=== PATIENT | female | born 2000 | race African-American/Black ===

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

== ENCOUNTER 2018-10-07 13:50 | Emergency (ER) | payer OTHER ==
[2018-10-07] MEDS: MORPHINE 2 MG/ML 1ML SYRINGE (J2270) IV (14:40)
[2018-10-07] MEDS: NS 1,000 ML IV (14:40)
[2018-10-07 14:53] LABS: HEMATOCRIT 38.8 % (36.0-47.0); HEMOGLOBIN 12.1 g/dl (12.0-15.5); MEAN CORPUSCULAR HEMOGLOBIN 24.8 pg (27.0-33.0); MEAN CORPUSCULAR HGB CONC 31.2 g/dl (32.0-36.5); MEAN CORPUSCULAR VOLUME 79.5 fl (80.0-96.0); PLATELET COUNT, AUTOMATED 309 10^3/uL (150-450); RED BLOOD COUNT 4.88 10^6/uL (4.00-5.40); RED CELL DISTRIBUTION WIDTH 14.9 % (11.5-14.5); WHITE BLOOD COUNT 14.6 10^3/uL (4.0-10.0)
[2018-10-07] MEDS ORDERED: ACETAMINOPHEN 325 MG TAB As Ordered (15:08)
[2018-10-07 15:12] LABS: ANION GAP 6 MEQ/L (8-16); BLOOD UREA NITROGEN 10 MG/DL (7-18); CALCIUM LEVEL 9.1 MG/DL (8.5-10.1); CARBON DIOXIDE LEVEL 28 MEQ/L (21-32); CHLORIDE LEVEL 105 MEQ/L (98-107); CPK CREATINE PHOSPHOKINASE 80 U/L (26-192); CREATININE FOR GFR 0.87 MG/DL (0.55-1.30); GLUCOSE, FASTING 86 MG/DL (70-100); HCG, SERUM QUANTITATIVE < 1.0 MIU/ML; POTASSIUM SERUM 3.8 MEQ/L (3.5-5.1); SODIUM LEVEL 139 MEQ/L (136-145)
[2018-10-07] MEDS: KETOROLAC 30 MG/ML VIAL (J1885) IV (15:30)
== END 2018-10-07 16:54 | disposition home or self-care (01) ==
LOC: M ED 13:50
DX: J06.9 Acute upper respiratory infection, unspecified (principal); R51 Headache
CPT/HCPCS: J1885

== ENCOUNTER 2019-02-05 11:57 | Emergency (ER) | payer OTHER ==
[~2019-02-05] VITALS: Ht 167.6 cm; Wt 79.5 kg
[~2019-02-05 11:57] MED LIST changes: +ANUS2.5C2 TOP; +COLA100C5 PO; +DIBU1OIN TOP; +FLAG500T PO; +IBUP-1114 PO; +MAPA500T2 PO; +MOTR200T44 PO
[2019-02-05] MEDS ORDERED: IBUP-1114 PO (12:59)
[2019-02-05] MEDS ORDERED: IBUPROFEN 400 MG TAB PO ONE (13:00)
[2019-02-05 13:01] VITALS: BP 130/62
== END 2019-02-05 13:07 | disposition home or self-care (01) ==
LOC: M ED 11:57
DX: S99.822A Other specified injuries of left foot, initial encounter (principal); X58.XXXA Exposure to other specified factors, initial encounter; Y92.89 Other specified places as the place of occurrence of the external cause; Z86.14 Personal history of Methicillin resistant Staphylococcus aureus infection

== ENCOUNTER 2019-04-27 15:18 | Emergency (ER) | payer OTHER ==
[~2019-04-27] VITALS: Ht 165.1 cm; Wt 82.3 kg
[2019-04-27] MEDS ORDERED: AZITHROMYCIN 250 MG TAB PO ONE (16:30)
[2019-04-27] MEDS: cefTRIAXone SOD 250 MG VIAL (J0696) IM ONE ×2 (16:37→16:42)
[2019-04-27] MEDS: LIDOCAINE 1% SDV 5 ML VIAL DILUENT ONE ×2 (16:37→16:43)
[2019-04-27 16:46] VITALS: BP 118/64
[2019-04-27 17:50] LABS: CHLAMYDIA DNA AMPLIFICATION NEGATIVE (NEGATIVE); GC DNA AMPLIFICATION NEGATIVE (NEGATIVE)
== END 2019-04-27 16:47 | disposition home or self-care (01) ==
LOC: M ED 15:18
DX: N89.8 Other specified noninflammatory disorders of vagina (principal); Z20.2 Contact with and (suspected) exposure to infections with a predominantly sexual mode of transmission

== ENCOUNTER 2019-05-01 13:29 | Emergency (ER) | payer OTHER ==
[~2019-05-01] VITALS: Ht 165.1 cm; Wt 84.2 kg
[2019-05-01 14:09] LABS: BASO % 0.3 % (0.0-1.0); EOS # 0.1 10^3/uL (0.0-0.50); EOS % 0.7 % (0.0-3.0); HEMATOCRIT 37.2 % (36.0-47.0); HEMOGLOBIN 11.1 g/dl (12.0-15.5); LYMPH # 2.6 10^3/uL (1.5-6.5); LYMPH % 34.9 % (24.0-44.0); MEAN CORPUSCULAR HGB CONC 29.8 g/dl (32.0-36.5); MEAN CORPUSCULAR VOLUME 77.2 fl (80.0-96.0); MONO # 0.5 10^3/uL (0.0-0.8); MONO % 7.3 % (0.0-5.0); NEUTROPHILS # 4.2 10^3/uL (1.8-7.7); NEUTROPHILS % 56.5 % (36.0-66.0); PLATELET COUNT, AUTOMATED 379 10^3/uL (150-450); RED BLOOD COUNT 4.82 10^6/uL (4.00-5.40); WHITE BLOOD COUNT 7.4 10^3/uL (4.0-10.0)
[2019-05-01 14:37] LABS: ALBUMIN 3.8 GM/DL (3.2-5.2); ALT/SGPT 18 U/L (12-78); BILIRUBIN,DIRECT 0.1 MG/DL (0.0-0.2); BILIRUBIN,TOTAL 0.5 MG/DL (0.2-1.0); BLOOD UREA NITROGEN 13 MG/DL (7-18); CALCIUM LEVEL 9.1 MG/DL (8.5-10.1); CARBON DIOXIDE LEVEL 27 MEQ/L (21-32); CHLORIDE LEVEL 107 MEQ/L (98-107); CREATININE FOR GFR 0.86 MG/DL (0.55-1.30); GLOMERULAR FILTRATION RATE > 60.0 (>60); GLUCOSE, FASTING 124 MG/DL (70-100); LIPASE 207 U/L (73-393); POTASSIUM SERUM 3.8 MEQ/L (3.5-5.1); SODIUM LEVEL 140 MEQ/L (136-145); TOTAL PROTEIN 7.9 GM/DL (6.4-8.2)
--- NOTE | 2019-05-01 16:04 | REP ---
Clinical: Pelvic pain and cramping . Technique: Transabdominal pelvic ultrasound followed by transvaginal examination for better evaluation of the endometrium and adnexa with color Doppler evaluation of the ovaries. Findings: Bladder is collapsed. Normal heterogeneous anteverted uterus measures 10.3 x 4.7 x 5.9 cm . The endometrial complex measures 11.5 mm thickness. No discrete uterine or endometrial abnormalities are appreciated. Right ovary not visualized. Left ovary is normal in appearance and vascularity without torsion and measures 4.4 x 2.6 x 3.4 cm; RI 0.60). Impression: 1. Normal uterus and left ovary. No torsion. 2. Right ovary not visualized. 3. No pelvic free fluid or adnexal mass lesion. Electronically Signed by Jacob Price MD 05/01/2019 03:56 P
[2019-05-01 16:09] VITALS: BP 137/61
== END 2019-05-01 16:26 | disposition home or self-care (01) ==
LOC: M ED 13:29
DX: N92.6 Irregular menstruation, unspecified (principal); N85.4 Malposition of uterus